=== PATIENT | male | born 1950 | race Hispanic/Latino ===

== ENCOUNTER 2024-08-13 17:54 | Emergency (ER) | payer MEDICARE, MEDICAID ==
[~2024-08-13] VITALS: Ht 175.3 cm; Wt 78.0 kg
--- NOTE | 2024-08-13 18:11 | ERN ---
ED Note History of Present Illness Stated Complaint: FALL Chief Complaint: Mechanical Fall Time Seen by MD: 18:07 Time Seen by Midlevel: 18:18 Dictation: Mr. Flynn is a 74 year old gentleman with no reported chronic health issues who presented to the Emergency Department this evening for evaluation after a fall. According to his son, he was outside "working" and sustained a fall striking his head. Patient states he was seated and became dizzy and fell forward striking his head on the ground. He had + LOC (unknown duration) and emesis x 1. He also complains of pain to left thumb. Prior to the fall he was complaining of extremity cramping. He denies fever, chills, shortness of breath, cough, chest pain, palpitations, edema, abdominal pain, diarrhea, melena, hematochezia, hematemesis, or headache. 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 Reports fatigue and general weakness. States he got overheated. EYES: Patient denies any visual symptoms. EARS, NOSE, AND THROAT: No difficulties with hearing. No symptoms of rhinitis or sore throat. CARDIOVASCULAR: Patient denies chest pains, palpitations, orthopnea and paroxysmal nocturnal dyspnea. RESPIRATORY: No dyspnea on exertion, no wheezing or cough. GI: No diarrhea, constipation, abdominal pain, hematochezia or melena. Reported nausea with emesis x 1 : No urinary hesitancy or dribbling. No nocturia or urinary frequency. No abnormal urethral discharge. MUSCULOSKELETAL: Reports leg cramping. Reports pain/tenderness left thumb. NEUROLOGIC: No chronic headaches, no seizures. Patient denies numbness, tingling or weakness. Reported dizziness. PSYCHIATRIC: Patient denies problems with mood disturbance. No problems with anxiety. ENDOCRINE: No excessive urination or excessive thirst. DERMATOLOGIC: Patient denies any rashes or skin changes. Initial Vital Sign VS Vital Signs Date Time Temp Pulse Resp B/P (MAP) Pulse Ox O2 Delivery O2 Flow Rate FiO2 08/13/24 18:19 98.1 65 16 144/78 98 Room Air* 0 21 Physical Exam Dictation Vital signs: Reviewed. Afebrile Constitutional: No acute distress. Non-toxic appearing. Pleasant. Son at bedside Head/Face: Small area of redness to right forehead. Eyes: Periorbital areas with no swelling, redness, or edema. Lids and lashes are normal. Conjunctival injection is absent. Sclera anicteric. Pupils equal, round, reactive to light. ENT: Pinnas intact and no signs of trauma or erythema. Ear canals clear and no discharge. TMs no erythema. No nasal discharge or bleeding noted. Oropharynx with no exudate, redness, swelling, masses, exudates, or evidence of obstruction. Uvula midline. Mucous membranes slightly dry. Neck: Trachea midline, no masses palpated, and no cervical lymphadenopathy. No swelling. Supple, full range of motion. Chest/Axilla: No tenderness, no crepitus, no paradoxical movement, no retractions. Cardiovascular: Regular rate, regular rhythm, no murmur, no gallops. Symmetric pulses. No peripheral edema. Respiratory: Respirations even and unlabored. Lung sounds clear; no wheezes, rales or rhonchi. Room air SpO2 97% Gastrointestinal: Inspection is normal. No distention is appreciated. Bowel sounds are normal. No mass or organomegaly . There is no tenderness. No rebound. No rigidity. No voluntary or involuntary guarding. No Dodge's sign. Neurological: Normal speech, gross motor function intact, gross sensory function intact. No focal weakness/Paresthesia. Speech is clear. NIHSS=0 Musculoskeletal/Extremities: Symmetric pulses. There is pain with ROM to left thumb. No deformity/crepitus. He has good color, warmth, movement, and sensation distal. Capillary refill less than 3 seconds Integumentary: Intact. Small area of redness to right forehead. Skin is normal color, warm and dry. Cap refill less than 3 seconds. Results (Laboratory/Radiology) Laboratory/Radiology Laboratory Tests Test 08/13/24 18:45 White Blood Count 11.7 K/uL (4.8-10.8) H Red Blood Count 4.98 MIL/uL (4.50-6.20) Hemoglobin 14.5 g/dL (14.0-18.0) Hematocrit 43.4 % (42-54) Mean Corpuscular Volume 87.1 fL (79-99) Mean Corpuscular Hemoglobin 29.1 pg (27.0-33.0) Mean Corpuscular Hemoglobin Concent 33.4 g/dL (32.0-36.0) Red Cell Distribution Width 12.6 % (11.0-15.5) Platelet Count 212 K/uL (130-400) Mean Platelet Volume 10.1 fL (7.5-10.5) Immature Granulocyte % (Auto) 0.3 % (0-1) Neutrophils (%) (Auto) 82.4 % (40.0-77.0) H Lymphocytes (%) (Auto) 10.3 % (21.0-51.0) L Monocytes (%) (Auto) 6.6 % (3.0-13.0) Eosinophils (%) (Auto) 0.2 % (0.0-8.0) Basophils (%) (Auto) 0.2 % (0.0-5.0) Neutrophils # (Auto) 9.6 K/uL (1.8-7.7) H Lymphocytes # (Auto) 1.2 K/uL (1.0-4.8) Monocytes # (Auto) 0.8 K/uL (0.1-1.0) Eosinophils # (Auto) 0.02 K/uL (0.00-0.70) Basophils # (Auto) 0.02 K/uL (0.00-0.20) Absolute Immature Granulocyte (auto 0.04 K/uL (0-1) Nucleated Red Blood Cells 0.0 % (0.0-0.19) Sodium Level 135 mmol/L (136-145) L Potassium Level 4.9 mmol/L (3.5-5.1) Chloride Level 97 mmol/L (101-111) L Carbon Dioxide Level 30 mmol/L (21-32) Blood Urea Nitrogen 19 mg/dL (7-18) H Creatinine 1.5 mg/dL (0.5-1.3) H Glomerular Filtration Rate Calc 48 mL/min (>90) Random Glucose 117 mg/dL (70-105) H Total Calcium 9.2 mg/dL (8.5-10.1) Magnesium Level 2.30 mg/dL (1.80-2.40) Labs Reviewed?: Yes EKG Comment: EKG Interpretation: Time Reviewed: 1844 Ventricular rate: 60 bpm [place] Interval: [141] ms QRS duration: [address] segment elevation or depression. Clinical impression: Sinus rhythm EKG Reviewed and interpreted by Dr. Loya X-RAY Comment: PATIENT: FÁTIMA FLYNN MR#: [id number] : 1950 SEX: M AGE: 74 LOCATION: [facility] ORDER 14 STATUS: REG ER REPORT#: [id number] SERVICE 13 REASON: left thumb pain post fall ORDERING PHYSICIAN: LYN RANDHAWA NP PROCEDURE: HAND 3V LT - HAND 3+VWS LT LEFT HAND RADIOGRAPHS - 3 VIEWS INDICATION: Left thumb pain after fall COMPARISON: None FINDINGS: AP, lateral, and oblique views. No acute fracture of subluxation identified. Scaphoid bone is intact. Carpal alignment and ulnar variance is within normal limits. No radiopaque foreign body noted. IMPRESSION: No evidence for fracture or subluxation. DICTATED BY: AAYUSH DELVALLE MD DATE: 08/13/242199 ELECTRONICALLY SIGNED BY: AAYUSH DELVALLE MD DATE: 08/13/242209 CT Scan Comment: PATIENT: FÁTIMA FLYNN MR#: [id number] : 1950 SEX: M AGE: 74 LOCATION: [facility] ORDER 35 STATUS: REG ER [facility] REPORT#: [id number] SERVICE 32 REASON: fall, hit head ORDERING PHYSICIAN: LYN RANDHAWA NP PROCEDURE: C SPIN WO - CT CERVICAL SPINE W/O CONTRAST CT CERVICAL SPINE WITHOUT CONTRAST INDICATION: Neck pain TECHNIQUE: Contiguous axial computed tomography imaging using 2 mm slice thickness through the cervical spine. Reconstructions in the sagittal and coronal planes. CT was performed with one or more of the following dose reduction techniques: Automated exposure control, adjustment of the mA and/or kV according to patient size, or use of iterative reconstruction technique. COMPARISON: None. FINDINGS: Straightening of the normal lordosis may be related to overlying muscle spasm, underlying degenerative joint disease and/or patient positioning. Vertebral bodies are normal stature without evidence for compression deformity or fracture. No evidence for subluxation. Multilevel mild to moderate cervical spondylosis. The craniocervical junction appears normal. The atlantoaxial articulation is within normal limits. The dens is intact. The pre- and paravertebral soft tissues appear unremarkable. IMPRESSION: No evidence for fracture or subluxation. DICTATED BY: AAYUSH DELVALLE MD DATE: 08/13/241858 ELECTRONICALLY SIGNED BY: AAYUSH DELVALLE MD DATE: 08/13/241901 PATIENT: FÁTIMA FLYNN MR#: [id number] : 1950 SEX: M AGE: 74 LOCATION: [facility] ORDER 35 STATUS: [facility] REPORT#: [id number] SERVICE 32 REASON: fall, hit head ORDERING PHYSICIAN: LYN RANDHAWA NP PROCEDURE: HEAD WO - CT HEAD/BRAIN W/O CONTRAST CT HEAD WITHOUT CONTRAST INDICATION: Fall TECHNIQUE: Noncontrast axial helical CT images from the vertex through the skull base using 5 mm slice thickness without contrast material. Coronal and sagittal reconstructions were also included. Dose reduction techniques was used using integrated, automated and adaptive dose reduction exposure control. CT was performed with one or more of the following dose reduction techniques: Automated exposure control, adjustment of the mA and/or kV according to patient size, or use of iterative reconstruction technique. COMPARISON: None FINDINGS: Scattered and coalescent subcortical and periventricular white matter low attenuating areas likely represent residual of chronic small vessel arteriopathy and/or remote vascular insult. Generalized mild cerebral cortical atrophy is present.. No evidence for abnormal extra-axial fluid collections or masses. The ventricles and sulci are normal in size and configuration. No evidence for intracranial parenchymal, epidural, or subdural hemorrhage, mass effect or midline shift. The silveira-white matter differentiation is well preserved. No secondary evidence to suggest acute ischemia. Mild calcific plaque is present along the [place] of the cavernous segments of both internal carotid arteries. The brainstem and cerebellum appear normal. The visualized orbits appear unremarkable. Mild bilateral ethmoid sinus mucosal thickening. Remainder of the visible paranasal sinuses and mastoid air cells are clear. The calvarium appears normal. IMPRESSION: Chronic white matter ischemic changes, mild brain atrophy, and arteriosclerotic disease as described, without acute component. DICTATED BY: AAYUSH DELVALLE MD DATE: 08/13/241857 ELECTRONICALLY SIGNED BY: AAYUSH DELVALLE MD DATE: 08/13/24 190 ED Course ED Course Orders Procedure Category Date Status Time Nothing By Mouth DIET 08/14/24 Transmitted Breakfast Cbc With Differential LAB 08/13/24 Complete 18:33 Basic Metabolic Panel LAB 08/13/24 Complete 18:33 Magnesium LAB 08/13/24 Complete 18:33 Urinalysis Profile LAB 08/13/24 Logged 18:33 12 Lead Ekg Tracing- EKG 08/13/24 Complete Technical 18:33 Ct Head/Brain W/O CT 08/13/24 Resulted Contrast 18:33 Ct Cervical Spine W/O CT 08/13/24 Resulted Contrast 18:33 Ondansetron Odt 4mg PHA 08/13/24 In Process Tab (Zofran 4mg Odt) 19:00 0.9% Nacl 250ml (Ns PHA 08/13/24 In Process 250ml) 19:00 Hand 3+Vws Lt RAD 08/13/24 Resulted 21:14 Acetaminophen 325 Tab PHA 08/13/24 Complete (Tylenol 325mg Tab 21:30 Apply Ice Pack To: CPOE 08/13/24 Transmitted (Er) 21:14 Current Medications Medications (Trade) Dose Ordered Sig/Rey Route PRN Reason Start Time Stop Time Status Last Admin Dose Admin Acetaminophen (TYLenol 325MG TAB) 650 mg ONCE ONCE PO 08/13/24 21:30 08/13/24 21:31 DC Ondansetron HCl (zoFRAN 4MG ODT) 4 mg ONCE SL 08/13/24 19:00 08/13/24 23:59 08/13/24 19:28 Sodium Chloride 250 ml @ 0 mls/hr ONCE IV 08/13/24 19:00 08/14/24 18:59 08/13/24 19:29 Vital Signs Date Time Temp Pulse Resp B/P (MAP) Pulse Ox O2 Delivery O2 Flow Rate FiO2 08/13/24 18:21 98.1 65 16 144/78 98 Room Air 0 08/13/24 18:19 98.1 65 16 144/78 98 Room Air* 0 21 Uneventful ED course. Vital signs remained stable; afebrile and normotensive with room air SpO2 98%. Stat noncontrast CT scan of the brain and cervical spine unremarkable. Laboratory findings as noted below. WBCs 11.7, Na/Cl 135/97, BUN 19/1.5, and glucose 117. Patient received dose Zofran as well as NS 250 mL IV as bolus. He remains alert and oriented x4. Ambulating with steady gait. Medical Decision Making MDM MDM: Differential diagnosis: Closed head injury, ic hemorrhage, dehydration, heat exhaustion, electrolyte derangement, left thumb fracture, left thumb contusion Rationale: Tests considered and ordered secondary to shared decision making include: Lab, EKG, CT scan Previous outside records reviewed: Old ER visits. Risk of complication and/or morbidity or mortality of patient management: None Medications-Per medication reconciliation Need for hospitalization: Patient does not meet criteria for hospitalization. Need for emergency major/minor surgery: No There are no social concerns with this patient. Prescription drug management: Zofran ODT, OTC Tylenol Prescriptions will include symptomatic care Patient's prior external medical records from other ER visits were reviewed by me as indicated. Prior testing and results from previous visits were reviewed. Prior tests were taken into account with medical decision making and resource utilization, independent historian/historians were used to obtain complete medical history. I independently interpreted the test that were performed, results were reviewed by me and considered findings on radiology if ordered. Medical management and examination interpretation discussions were had by me with other qualified healthcare professionals as indicated for the patient's care. DX & DISP Disposition: Discharge Departure Impression: Primary Impression: Closed head injury Additional Impressions: Heat exhaustion, Mild dehydration, Contusion, thumb Condition: Stable Scripts Ondansetron (Ondansetron Odt) 4 Mg Tab.rapdis 4 MG PO Q6HPRN PRN for nausea, #15 TAB 0 Refills Prov: LYN RANDHAWA DOG WARDEN 5/16/25 Additional Instructions: Rest. Stay indoors/avoid high temperatures outdoors. Drink plenty of fluids. May take Zofran ODT as needed for nausea/vomiting. May take tylenol as needed for thumb pain. May also use cool pack. Follow up with your primary care physician in the next 2-3 days. Return to the emergency department for any worsening of symptoms or concerns. Referrals: SELF,REFERRAL (PCP) Time of Disposition: 21:14 LYN RANDHAWA NP August 13, 2024 18:11
--- NOTE | 2024-08-13 18:48 | EKG ---
[facility] Test Date: 2024-08-13 Test Time: 18:45:48 Pat Name: FÁTIMA FLYNN Department: ED Room: Gender: M Artist Manager: [id number] : 1950 Requested By: LYN RANDHAWA Order Number: [id number] Reading MD: Kaylee Palumbo Measurements Intervals [place] Rate: 60 P: 58 DE: 141 QRS: 54 QRSD: 101 T: 78 QT: 419 QTc: 419 Interpretive Statements Sinus rhythm Nonspecific T abnrm, anterolateral leads No previous ECG available for comparison Electronically Signed On 08-16-2024 14:19:52 CDT by Kaylee Palumbo Please click the below link to view image of tracing.
[2024-08-13 18:52] LABS: BASOPHILS # (AUTO) 0.02 K/uL (0.00-0.20); BASOPHILS % (AUTO) 0.2 % (0.0-5.0); EOSINOPHILS # (AUTO) 0.02 K/uL (0.00-0.70); EOSINOPHILS % (AUTO) 0.2 % (0.0-8.0); HEMATOCRIT 43.4 % (42-54); IMMATURE GRANULOCYTE ABSOLUTE 0.04 K/uL (0-1); LYMPHOCYTES # (AUTO) 1.2 K/uL (1.0-4.8); LYMPHOCYTES % (AUTO) 10.3 % (21.0-51.0); MEAN CORPUSCULAR HEMOGLOBIN 29.1 pg (27.0-33.0); MEAN CORPUSCULAR HGB CONC 33.4 g/dL (32.0-36.0); MEAN CORPUSCULAR VOLUME 87.1 fL (79-99); MONOCYTES # (AUTO) 0.8 K/uL (0.1-1.0); MONOCYTES % (AUTO) 6.6 % (3.0-13.0); NEUTROPHILS # (AUTO) 9.6 K/uL (1.8-7.7); NEUTROPHILS % (AUTO) 82.4 % (40.0-77.0); PLATELET COUNT (AUTO) 212 K/uL (130-400); RED BLOOD CELL COUNT(AUTO) 4.98 MIL/uL (4.50-6.20); RED CELL DISTRIBUTION WIDTH 12.6 % (11.0-15.5); WHITE BLOOD COUNT (AUTO) 11.7 K/uL (4.8-10.8)
[2024-08-13 19:01] LABS: CREATININE 1.5 mg/dL (0.5-1.3); MAGNESIUM 2.3 mg/dL (1.80-2.40); POTASSIUM 4.9 mmol/L (3.5-5.1)
--- NOTE | 2024-08-13 19:01 | HMCIMG ---
CT HEAD WITHOUT CONTRAST INDICATION: Fall TECHNIQUE: Noncontrast axial helical CT images from the vertex through the skull base using 5 mm slice thickness without contrast material. Coronal and sagittal reconstructions were also included. Dose reduction techniques was used using integrated, automated and adaptive dose reduction exposure control. CT was performed with one or more of the following dose reduction techniques: Automated exposure control, adjustment of the mA and/or kV according to patient size, or use of iterative reconstruction technique. COMPARISON: None FINDINGS: Scattered and coalescent subcortical and periventricular white matter low attenuating areas likely represent residual of chronic small vessel arteriopathy and/or remote vascular insult. Generalized mild cerebral cortical atrophy is present.. No evidence for abnormal extra-axial fluid collections or masses. The ventricles and sulci are normal in size and configuration. No evidence for intracranial parenchymal, epidural, or subdural hemorrhage, mass effect or midline shift. The silveira-white matter differentiation is well preserved. No secondary evidence to suggest acute ischemia. Mild calcific plaque is present along the [place] of the cavernous segments of both internal carotid arteries. The brainstem and cerebellum appear normal. The visualized orbits appear unremarkable. Mild bilateral ethmoid sinus mucosal thickening. Remainder of the visible paranasal sinuses and mastoid air cells are clear. The calvarium appears normal. IMPRESSION: Chronic white matter ischemic changes, mild brain atrophy, and arteriosclerotic disease as described, without acute component.
--- NOTE | 2024-08-13 19:02 | HMCIMG ---
CT CERVICAL SPINE WITHOUT CONTRAST INDICATION: Neck pain TECHNIQUE: Contiguous axial computed tomography imaging using 2 mm slice thickness through the cervical spine. Reconstructions in the sagittal and coronal planes. CT was performed with one or more of the following dose reduction techniques: Automated exposure control, adjustment of the mA and/or kV according to patient size, or use of iterative reconstruction technique. COMPARISON: None. FINDINGS: Straightening of the normal lordosis may be related to overlying muscle spasm, underlying degenerative joint disease and/or patient positioning. Vertebral bodies are normal stature without evidence for compression deformity or fracture. No evidence for subluxation. Multilevel mild to moderate cervical spondylosis. The craniocervical junction appears normal. The atlantoaxial articulation is within normal limits. The dens is intact. The pre- and paravertebral soft tissues appear unremarkable. IMPRESSION: No evidence for fracture or subluxation.
[2024-08-13] MEDS: ondanSETRON ODT 4MG TAB SL SCH (19:28)
[2024-08-13] MEDS: 0.9% NACL 250ML 250 ML IV SCH (19:29)
[2024-08-13] MEDS ORDERED: ONDA-243 PO (21:04)
--- NOTE | 2024-08-13 22:10 | HMCIMG ---
LEFT HAND RADIOGRAPHS - 3 VIEWS INDICATION: Left thumb pain after fall COMPARISON: None FINDINGS: AP, lateral, and oblique views. No acute fracture of subluxation identified. Scaphoid bone is intact. Carpal alignment and ulnar variance is within normal limits. No radiopaque foreign body noted. IMPRESSION: No evidence for fracture or subluxation.
[2024-08-13] MEDS: acetaMINOPHEN 325 MG TAB PO ONE (22:38)
[2024-08-13 23:04] VITALS: BP 136/74; PULSE 68; RESP 14; TEMP 97.2; O2SAT 100
== END 2024-08-13 23:06 | disposition home or self-care (01) ==
LOC: EDH 17:54
DX: S60.012A Contusion of left thumb without damage to nail, initial encounter (principal); S09.8XXA Other specified injuries of head, initial encounter; T67.5XXA Heat exhaustion, unspecified, initial encounter; E86.0 Dehydration; Z79.899 Other long term (current) drug therapy; W18.39XA Other fall on same level, initial encounter; Y93.89 Activity, other specified; Y92.89 Other specified places as the place of occurrence of the external cause; Y99.8 Other external cause status
CPT/HCPCS: 36415; 70450; 72125; 73130; 80048; 83735; 85025; 93005; 99285